=== PATIENT | male | born 1965 | race Caucasian/White ===

== ENCOUNTER → 2016-06-10 07:24 | Outpatient (CLI) | payer MEDICARE ==
[~2016-06-10 07:24] MED LIST: PERCOCET 10/3251 TA1 PO; PRILOSEC20 MG PO; SPRYCEL50 MG PO; ULTRAM50 MG PO; XANAX2 MG PO
--- NOTE | 2016-06-14 08:22 | EEG ---
PATIENT:KANA CHOI JR DATE OF SERVICE: 06/10/16 MEDICAL RECORD: [id number] DATE OF : 63 LOCATION: [facility] ADMISSION DATE: 06/10/16 REFERRING PHYSICIAN: INTERPRETING PHYSICIAN: JORGE CARNEY MD DATE OF SERVICE: 06/10/2016 Referred by myself as an outpatient. ELECTROENCEPHALOGRAM NUMBER: [id number]. DATE OF EXAMINATION: 06/10/2016 at 10:45 a.m. TECHNICAL DATA: This electroencephalographic recording consists of approximately 20 minutes of data collection utilizing the international 10/20 system of electrode placement and both referential and non-referential montages. Sixteen channels of electrocerebral recording are accompanied by a 17th channel dedicated to the electrocardiographic rhythm and 2 channels of electromyographic recording. Recording is performed in the awake and drowsy states utilizing activation by hyperventilation and photic stimulation. ELECTROENCEPHALOGRAPHIC DATA: The awake state comprises approximately 60% of the recorded electrocerebral activity. Electromyographic artifact is prominent and rapid eye movements are seen. The posterior dominant background consists of a symmetric semi-arrhythmic waxing and waning 6-7 Hz theta activity, which is suppressed by eye opening. The drowsy state comprises the remaining portion of the recorded electrocerebral activity. Electromyographic artifact is diminished and rapid eye movements are not seen. The posterior dominant background is relatively suppressed. No focal slowing is identified. No epileptiform discharges are seen. Photic stimulation and hyperventilation induced no abnormal change in the recorded electrocerebral activity. INTERPRETATION: Background slow (awake and drowsy). This electroencephalographic recording is indicative of a mild diffuse encephalopathy. TRANSINT:[id number] Voice Confirmation ID: [id number] DOCUMENT ID: [id number] JORGE CARNEY MD at 0822 CC: [id number] DICTATION DATE: 06/12/[address] MANAGER: 06/12/16 1003 DEP CLI 06/10/16 [id number] [place] [address]
--- NOTE | 2016-06-14 08:22 | EMG ---
PATIENT:KANA CHOI JR DATE OF SERVICE: 06/10/16 MEDICAL RECORD: [id number] DATE OF : 63 LOCATION: [facility] ADMISSION DATE: REFERRING PHYSICIAN: JORGE CARNEY MD INTERPRETING PHYSICIAN: JORGE CARNEY MD DATE OF SERVICE: 06/10/2016 Electromyographic Report REFERRED BY: Myself as an outpatient. DATE OF EXAMINATION: 06/10/2016 ELECTROMYOGRAPHIC DATA: Electromyographic examination is limited to both lower extremities. In the right lower extremity, right peroneal motor stimulation elicits a compound motor action potential with a distal latency of 5.1 milliseconds, peak amplitude of only 500 microvolts and calculated conduction velocity of 48 meters per second. Right tibial motor stimulation elicits a compound motor action potential with a distal latency of 4.6 milliseconds, peak amplitude of 13 millivolts, and calculated conduction velocity of 40 meters per second. Antidromic right sural sensory stimulation elicits a response with a distal latency of 2.9 milliseconds, amplitude of 5 microvolts and calculated conduction velocity of 40 meters per second. The right lower extremity H reflex recording at gastrocsoleus is absent. In the left lower extremity, left peroneal motor stimulation elicits a compound motor action potential with a distal latency of 4.1 milliseconds, peak amplitude of 2 millivolts and calculated conduction velocity of 42 meters per second. Left tibial motor stimulation elicits a compound motor action potential with a distal latency of 4.7 milliseconds, peak amplitude of 11 millivolts and calculated conduction velocity of 42 meters per second. Antidromic left sural sensory stimulation elicits a response with a distal latency of 3.4 milliseconds, amplitude of 3 microvolts and calculated conduction velocity of 40 meters per second. The left lower extremity H reflex recording at gastrocsoleus has a latency of 42 milliseconds. Needle electrode examination is limited to both lower extremities as well. Muscles interrogated include the abductor hallucis, extensor digitorum brevis, abductor digiti quinti, tibialis anterior, medial gastrocnemius, vastus lateralis, semitendinosis and gluteus billy. There is no abnormality of insertional activity and no abnormal spontaneous activity is seen in all muscles interrogated with the exception of ____ in insertional activity in the right extensor digitorum brevis. No abnormal spontaneous activity is seen. Motor unit potential morphology and the pattern of motor unit potential firing and recruitment demonstrates absence of near field motor units at the right extensor digitorum brevis only. INTERPRETATION: Electromyographic examination of both lower extremities demonstrates all calculated conduction velocity is to be at the lower limits of normal. 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 The right lower extremity H reflex is absent with the left being ELECTROMYGRAM/NERVE CONDUCTION [id number] KANA CHOI JR significantly prolonged. 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 In the absence of other findings in similarly innervated musculature distinction between a local process of the extensor digitorum brevis and it is terminal branches of the peritoneal nerve versus an alternative cause of denervation is not possible at this time. TRANSINT:[id number] Voice Confirmation ID: [id number] DOCUMENT ID: [id number] JROGE CARNEY MD at 0822 CC: [id number] DICTATION DATE: 06/10/16 0847 PRODUCTION POSTING CLERK: 06/10/16 1100 DEP CLI 06/10/16 [facility] [address] [place] [address]
== END | disposition home or self-care (01) ==
LOC: D.CN 07:24
DX: G31.83 Neurocognitive disorder with Lewy bodies (principal); M79.661 Pain in right lower leg; M79.662 Pain in left lower leg